=== PATIENT | female | born 1975 | race African-American/Black ===

== ENCOUNTER 2016-05-24 03:44 | Emergency (ER) | payer MEDICARE, OTHER ==
[~2016-05-24] VITALS: Ht 175.3 cm; Wt 155.0 kg
[~2016-05-24 03:44] MED LIST: ASPI325T4 PO; BENA40TA54 PO; BROM2.5T13 PO; CARV12.579 PO; [UNRECOGNIZED DRUG - CODE]; [UNRECOGNIZED DRUG - CODE] BOTH EYES
[2016-05-24 03:47] VITALS: Ht 175.3 cm; Wt 155.0 kg
== END 2016-05-24 05:32 | disposition left against medical advice (07) ==
LOC: E/R 03:44
DX: Z53.21 Procedure and treatment not carried out due to patient leaving prior to being seen by health care provider (principal)